=== PATIENT | female | born 1995 | race Two or more races ===

== ENCOUNTER 2020-03-25 15:01 | Outpatient (REF) | payer OTHER, SELFPAY | END 2020-03-25 15:02 | disposition home or self-care (01) | LOC: HO.LAB 15:01 | PROVIDERS: PCP Registered Nurse; Visit Provider Internal Medicine | DX: Z20.828 Contact with and (suspected) exposure to other viral communicable diseases (principal) | CPT/HCPCS: 87635 ==

== ENCOUNTER 2020-04-13 14:34 | Outpatient (REF) | payer OTHER, SELFPAY | END 2020-04-13 14:35 | disposition home or self-care (01) | LOC: HO.HMGCLDS 14:34 | PROVIDERS: PCP Registered Nurse; Visit Provider Internal Medicine | DX: Z20.828 Contact with and (suspected) exposure to other viral communicable diseases (principal) | CPT/HCPCS: C9803; U0003 ==

== ENCOUNTER 2020-05-29 09:30 | Outpatient (REF) | payer OTHER, SELFPAY | END 2020-05-29 09:31 | disposition home or self-care (01) | LOC: HO.LAB 09:30 | PROVIDERS: Visit Provider Internal Medicine | DX: Z20.828 Contact with and (suspected) exposure to other viral communicable diseases (principal) | CPT/HCPCS: C9803; U0003 ==